=== PATIENT | male | born 1960 | race Caucasian/White ===

== ENCOUNTER → 2018-01-19 | Outpatient (CLI) | payer OTHER ==
[~2018-01-19] MED LIST: IOPAMIDOL 370 MG/ML 200 ML INFUS..BTL INJ ONE; OSTEO BI-FLEX1 EAC2 PO; SODIUM CHLORIDE 0.9% 50ML 50 ML ONE
--- NOTE | 2018-01-19 10:34 | Diagnostic Imaging Report ---
PROCEDURE: CT ABDOMEN AND PELVIS WITH CONTRAST TECHNIQUE: The abdomen and pelvis were scanned utilizing a multidetector helical scanner from the diaphragm to the lesser trochanter after the IV administration of 100 cc of Isovue 370 and the oral administration of water. Coronal and sagittal multiplanar reformations were obtained. COMPARISON: 10/16/2009. INDICATIONS: PERIUMBILICAL PAIN, DIARRHEA FINDINGS: LOWER THORAX: Subsegmental atelectasis in the dependent portions of lower lobes. No pleural or pericardial effusion. HEPATOBILIARY: Hepatic cysts in segment 4A and 6 with additional subcentimeter hypoattenuating foci scattered throughout the liver, too small to further characterize but likely to represent additional small cysts. No intrahepatic biliary ductal dilatation. The gallbladder is unremarkable. SPLEEN: No splenomegaly. PANCREAS: No focal masses or ductal dilatation. ADRENALS: No adrenal nodules. KIDNEYS/URETERS: Interval resection of the previously described hyperattenuating right renal exophytic mass, with a small cortical defect in the surgical bed.. No focal renal mass lesion. No hydronephrosis or calculus. PELVIC ORGANS/BLADDER: The urinary bladder is unremarkable. Coarse prosthetic calcifications. PERITONEUM / RETROPERITONEUM: No ascites. No pneumoperitoneum. LYMPH NODES: No pelvic sidewall, retroperitoneal, or mesenteric lymphadenopathy. VESSELS: The abdominal aorta, major branch vessels, and iliac arterial systems are patent without aneurysmal dilatation. A single renal artery perfuses each kidney. The portal vein and splenic vein are patent. GI TRACT: The large bowel shows no distention or wall thickening the rectum is collapsed and poorly evaluated. There are multiple diverticula scattered along the sigmoid colon without adjacent inflammatory change. The appendix is normal. There is no small bowel dilatation to suggest obstruction. BONES AND SOFT TISSUES: No focal soft tissue abnormalities. No osseous destructive lesions. Multilevel degenerative disc changes and degenerative facet arthropathy of the lumbar spine. IMPRESSION: No acute intra-abdominal or pelvic CT abnormalities. Large bowel diverticulosis without evidence of diverticulitis. Dictated by: Murphy Hale M.D. on 01/19/2018 at 10:37 Electronically approved by: Murphy Hale M.D. on 01/19/2018 at 10:37
== END ==
LOC: CT 08:47
PROVIDERS: ATTEND Internal Medicine Gastroenterology
DX: R10.33 Periumbilical pain (principal); R19.7 Diarrhea, unspecified; K92.1 Melena
CPT/HCPCS: 74177; Q9967